=== PATIENT | female | born 2000 ===

== ENCOUNTER 2022-02-12 12:18 | Emergency (ER) | payer BC ==
[2022-02-12] MEDS ORDERED: Iopamidol 755 Mg/ML 100 ML Bottle IV ONE (12:19)
== END 2022-02-12 20:45 ==
LOC: MW.ED 12:18
DX: R55 Syncope and collapse (principal); K21.9 Gastro-esophageal reflux disease without esophagitis; Z88.0 Allergy status to penicillin
CPT/HCPCS: 70450; 74177; 96360; 99284; Q9967; 93010